=== PATIENT | male | born 1960 | race Caucasian/White ===

== ENCOUNTER 2016-09-12 19:35 | Emergency (ER) | payer OTHER ==
[2016-09-12 19:43] VITALS: TEMP 98.1
[2016-09-12] MEDS ORDERED: HYDROCODONE/APAP 5/325 TAB ONE (20:47)
[2016-09-12] MEDS ORDERED: IBUPROFEN 600 MG TAB PO ONE ×2 (20:48→20:58)
[2016-09-12] MEDS ORDERED: HYDROCODONE/APAP 5/325 TAB PO ONE (20:57)
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
[2016-09-13 03:58] VITALS: BP 132/72; PULSE 75; RESP 16; O2SAT 97
== END 2016-09-12 21:25 | disposition home or self-care (01) ==
DX: S16.1XXA Strain of muscle, fascia and tendon at neck level, initial encounter (principal); V66 Occupant of heavy transport vehicle injured in collision with other nonmotor vehicle; Y92.410 Unspecified street and highway as the place of occurrence of the external cause; Y99.8 Other external cause status; Y93.89 Activity, other specified

== ENCOUNTER 2016-09-20 02:39 | Emergency (ER) | payer OTHER ==
[2016-09-20] MEDS ORDERED: HYDROCODONE/APAP 5/325 TAB PO ONE (04:38)
[2016-09-20] MEDS ORDERED: KETOROLAC 30 MG/1 ML SDV IM ONE (04:38)
[2016-09-20 05:40] VITALS: RESP 18
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
[2016-09-20] MEDS ORDERED: LORazepam 1 MG TAB PO ONE (05:56)
[2016-09-20] MEDS ORDERED: HYDROCOD/APAP 5/325 PREPACK#6 BTL TAKEHOME ONE (06:50)
[2016-09-20 06:53] VITALS: BP 137/80; PULSE 73; TEMP 97.5; O2SAT 94
== END 2016-09-20 07:03 | disposition home or self-care (01) ==
DX: S16.1XXD Strain of muscle, fascia and tendon at neck level, subsequent encounter (principal); R20.2 Paresthesia of skin; V89.2XXD Person injured in unspecified motor-vehicle accident, traffic, subsequent encounter
CPT/HCPCS: J1885

== ENCOUNTER 2016-10-17 19:19 | Emergency (ER) | payer OTHER ==
--- NOTE | 2016-10-17 19:37 | EDPHY ---
H & P Stated Complaint: FELL ON FRIDAY NOW WITH SEVERE SWELLING TO R ELBOW AREA HPI/ROS: HPI CHIEF COMPLAINT: Right elbow pain status post fall Friday. HISTORY OF PRESENT ILLNESS: This patient very pleasant 56-year-old male nondiabetic, no significant medical history does not take any daily medications presents emergency room with right elbow pain. States that he tripped and fell backwards striking his right elbow on the rock ground. Patient since then has had some mild pain however it has progressively gotten worse. He now has erythema and tenderness over the olecranon bursa consistent with acute bursitis. Infected bursitis 1st traumatic bursitis. He does have full range of motion of the elbow. No fever. 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 Family History: Noncontributory ROS REVIEW OF SYSTEMS: A comprehensive 10 point review of systems is otherwise negative aside from elements mentioned in the history of present illness. Exam Constitutional triage nursing summary reviewed, vital signs reviewed, awake/ alert. Eyes normal conjunctivae and sclera, EOMI, PERRLA. HENT normal inspection, atraumatic, moist mucus membranes, no epistaxis, neck supple/ no meningismus, no raccoon eyes. Respiratory clear to auscultation bilaterally, normal breath sounds, no respiratory distress, no wheezing. Cardiovascular rate normal, regular rhythm, no murmur, no edema, distal pulses normal. Gastrointestinal soft, non-tender, no rebound, no guarding, normal bowel sounds, no distension, no pulsatile mass. Genitourinary no CVA tenderness. Musculoskeletal right arm: Neurovascular intact good radial pulse good cap refill, full range of motion of the elbow. However noted over the olecranon region there is olecranon bursitis the bursa is inflamed, red, warm, fluctuance. no midline vertebral tenderness, full range of motion, no calf swelling, no tenderness of extremities, no meningismus, good pulses, neurovascularly intact. Skin pink, warm, & dry, no rash, skin atraumatic. Neurologic awake, alert and oriented x 3, AAOx3, moves all 4 extremities equally, motor intact, sensory intact, CN II-XII intact, normal cerebellar, normal vision, normal speech. Psychiatric normal mood/affect. Heme/Lymph/Immune no lymphadenopathy. Differential Diagnosis: Includes but is not limited to in a particular order traumatic bursitis, infected bursitis, elbow fracture olecranon fracture. Medical Decision Making: Plan for this patient x-ray right elbow. An I and D bursa. Drain fluid. Sent for Gram stain culture. Start on Keflex and Bactrim. Close orthopedic follow-up. Re-evaluation: 2050: Patient's x-ray been reviewed of the right elbow. No fracture identified. No indication of occult fracture. Id has been performed. Studies have been sent. Patient been placed on Keflex Bactrim. Pain medicine. Close orthopedic follow-up return emergency room if there is worsening redness, swelling, pain patient understands. Source: Patient - Personal History Current Tetanus/Diphtheria Vaccine: Yes Current Tetanus Diphtheria and Acellular Pertussis (TDAP): Yes Tetanus Vaccine Date: 2013 - Medical/Surgical History Hx Asthma: No Hx Chronic Respiratory Disease: No Hx Diabetes: No Hx Cardiac Disease: No Hx Renal Disease: No Hx Cirrhosis: No Hx Alcoholism: No Hx HIV/AIDS: No Hx Splenectomy or Spleen Trauma: No Other PMH: R shoulder surg, R knee surg, neck surg, appendectomy - Social History Smoking Status: Never smoked Constitutional: Initial Vital Signs Temperature (C) 37.0 C 10/17/16 19:25 Heart Rate 110 H 10/17/16 19:25 Respiratory Rate 20 10/17/16 19:25 Blood Pressure 125/85 H 10/17/16 19:25 O2 Sat (%) 95 10/17/16 19:25 O2 Delivery Mode Room Air Allergies/Adverse Reactions: No Known Allergies Allergy (Unverified 10/17/16 19:27) Home Medications: Medication Instructions Recorded Ibuprofen 09/20/16 Cephalexin [Keflex] 500 mg PO Q6H #28 cap 10/17/16 Hydrocodone/APAP 5/325 [[place] 1 - 2 tab PO Q4H PRN #20 tab 10/17/16 5/325] Ibuprofen [Motrin (*)] 800 mg PO Q6-8PRN #10 tab 10/17/16 Sulfamethox/Tmp 800/160 mg 1 tab PO BID@1000,2200 #14 tab 10/17/16 [Bactrim Ds] Medical Decision Making - Data Points Laboratory Results: 10/17/16 20:20 Synovial Source Pending Synovial Color Pending Synovial Appearance Pending Synovial WBC Pending Synovial RBC Pending Synovial Glucose Pending Medications Given: Discontinued Medications Hydrocodone Bitart/Acetaminophen ([place] 10/325) 1 tab PO EDNOW ONE Stop: 10/17/16 19:43 Last Admin: 10/17/16 19:51 Dose: 1 tab Cephalexin HCl (Keflex) 500 mg PO EDNOW ONE PRN Reason: Protocol Stop: 10/17/16 19:43 Last Admin: 10/17/16 19:51 Dose: 500 mg Tetracaine/Epinephrine/Lidocaine (Let Gel Topical) 1 ea TP EDNOW ONE Stop: 10/17/16 19:52 Last Admin: 10/17/16 19:58 Dose: 1 ea Trimethoprim/Sulfamethoxazole (Bactrim Ds) 1 ea PO EDNOW ONE PRN Reason: Protocol Stop: 10/17/16 19:43 Last Admin: 10/17/16 19:51 Dose: 1 ea Departure - Departure Disposition: Home, Routine, Self-Care Clinical Impression: Traumatic bursitis Condition: Good Instructions: Cephalexin (By mouth), Hydrocodone/Acetaminophen (By mouth), Elbow Bursitis (ED) Additional Instructions: 1.Return emergency room if you have any worsening symptoms questions or concerns includes worsening redness, swelling, fever pain. 2. You need to follow up with Orthopedics closely. Return if any worsening symptoms. Take home medication instructions: [place] 1-2 tabs by mouth every 6 hours as needed for pain. Keflex 1 tablet four times per day until pills are finished. Referrals: NONE *PRIMARY CARE P,. [Primary Care Provider] - As per Instructions Prescriptions: Cephalexin [Keflex] 500 mg PO Q6H #28 cap Hydrocodone/APAP 5/325 [[place] 5/325] 1 - 2 tab PO Q4H PRN #20 tab PRN Reason: Pain, Moderate Ibuprofen [Motrin (*)] 800 mg PO Q6-8PRN #10 tab Sulfamethox/Tmp 800/160 mg [Bactrim Ds] 1 tab PO BID@1000,2200 #14 tab
[2016-10-17] MEDS ORDERED: CEPHALEXIN 500 MG CAP PO ONE (19:42)
[2016-10-17] MEDS ORDERED: HYDROCOD/APAP 5/325 PREPACK#6 BTL TAKEHOME ONE (19:42)
[2016-10-17] MEDS ORDERED: HYDROCODONE/APAP 10/325 TAB PO ONE (19:42)
[2016-10-17] MEDS ORDERED: SULFAMETHOX/TMP 800/160 MG 1 TAB PO ONE (19:42)
[2016-10-17] MEDS ORDERED: CEPHALEXIN 500MG PREPACK#4 BTL TAKEHOME ONE (19:42)
[2016-10-17] MEDS ORDERED: LET GEL TOPICAL 1 EA SYR TP ONE (19:51)
--- NOTE | 2016-10-17 20:27 | EDPHY ---
ED Progress Note Narrative: Procedure: Right Olecranon bursitis aspiration. Diagnosis: Right olecranon bursitis with effusion Verbal consent was obtained from the patient. The right elbow was anesthetized in the usual fashion with LET topical gel. The elbow was prepped with ChloraPrep x 3. The area was draped. The lateral epicondyle, radial head and olecranon process were identified on the right elbow. A 22 gauge needle was inserted into the most fluctuant area; clear serosanguineous fluid of 5 mL was aspirated; with a small amount of blood-tinged synovial fluid at the end of aspiration. The synovial fluid was sent for analysis. 2 x 2 gauze and then Coban was applied. Patient tolerated procedure well. The procedure was performed by myself.
[2016-10-17 21:11] LABS: WBC, SYNOVIAL FLUID 4370 /mm3 (0-150)
[2016-10-17 21:13] VITALS: BP 123/85; PULSE 89; RESP 16; TEMP 99.1; O2SAT 93
[2016-10-17 21:23] LABS: GLUCOSE, SYNOVIAL FLUID 99 mg/dL (55-113)
== END 2016-10-17 21:14 | disposition home or self-care (01) ==
PROC: 0M933ZZ Drainage of Right Elbow Bursa and Ligament, Percutaneous Approach (ICD-10-PCS; principal; 2016-10-17)
DX: M70.21 Olecranon bursitis, right elbow (principal); W01.198A Fall on same level from slipping, tripping and stumbling with subsequent striking against other object, initial encounter

== ENCOUNTER 2016-10-20 16:59 | Emergency (ER) | payer OTHER ==
--- NOTE | 2016-10-20 17:33 | EDPHY ---
H & P Time Seen by Provider: 10/20/16 17:22 HPI/ROS: Chief complaint. right elbow pain HPI. Patient is a 56-year-old male seen 3 days ago for fluid accumulation in the bursa. He had tripped and fallen on a rock striking his right elbow. He had fluid accumulation. X-ray was normal. The fluid was sent for culture and did not grow any bacteria. He is taking cephalexin and Bactrim. The fluid has slowly reaccumulate it and he was instructed to return for reaccumulation and possible we aspiration ROS Constitutional. no fever/chills, no weakness Eyes. no problems with vision ENT. no sore throat, no nasal drainage Cardiovascular. no chest pain Respiratory. no shortness of breath, no cough Abdominal. no abdominal pain, no nausea/vomiting, no diarrhea . no problems urinating MS. Right elbow pain and swelling Skin. no rash Lymph. no swollen glands Neuro. no headache, no dizziness, no difficulty walking or with speech Past Medical/Surgical History: Healthy Social History: , nonsmoker, no alcohol Smoking Status: Never smoked Physical Exam: General Appearance: Pleasant well-developed male mild distress vital signs are stable Eyes: Pupils equal and round no pallor or injection. ENT, Mouth: Mucous membranes are moist. Respiratory: There are no retractions, lungs are clear to auscultation. Cardiovascular: Regular rate and rhythm. Gastrointestinal: Abdomen is soft and nontender, no masses, bowel sounds normal. Neurological: Awake and alert, sensory and motor exams grossly normal. Skin: Warm and dry, no rashes. Musculoskeletal: Neck is supple nontender. Extremities fluid accumulation over the right olecranon bursa. No erythema or warmth or evidence for infection Psychiatric: Patient is oriented X 3, there is no agitation. Constitutional: Initial Vital Signs Temperature (C) 36.7 C 10/20/16 17:02 Heart Rate 85 10/20/16 17:02 Respiratory Rate 16 10/20/16 17:02 Blood Pressure 137/82 H 10/20/16 17:02 O2 Sat (%) 96 10/20/16 17:02 O2 Delivery Mode Room Air Allergies/Adverse Reactions: No Known Allergies Allergy (Verified 10/20/16 17:01) Home Medications: Medication Instructions Recorded Ibuprofen 09/20/16 Cephalexin [Keflex] 500 mg PO Q6H #28 cap 10/17/16 Hydrocodone/APAP 5/325 [[place] 1 - 2 tab PO Q4H PRN #20 tab 10/17/16 5/325] Ibuprofen [Motrin (*)] 800 mg PO Q6-8PRN #10 tab 10/17/16 Sulfamethox/Tmp 800/160 mg 1 tab PO BID@1000,2200 #14 tab 10/17/16 [Bactrim Ds] Medical Decision Making Procedures: After sterile preparation 1% lidocaine with epinephrine is infiltrated into the bursa. It is then aspirated with a 22 gauge needle yielding about 7 cc of serosanguineous fluid. Antibiotic ointment is then applied bandages applied an Lalito bandage applied over the top of this to try to prevent reaccumulation. Procedures performed by me. Patient tolerated the procedure well. The fluid is not sent for culture sensitivity as this was done several days ago and showed no growth and there is no evidence for infection currently ED Course/Re-evaluation: Patient and I discussed treatment plan including criteria for return importance of follow-up and further evaluation. He expresses understanding and agreement Differential Diagnosis: Olecranon bursitis posttraumatic. Likely this is inflammatory rather than infectious. No clinical findings for infection today. Departure - Departure Disposition: Home, Routine, Self-Care Clinical Impression: Olecranon bursitis of right elbow Condition: Good Instructions: Elbow Bursitis (ED) Additional Instructions: Finish your antibiotics. Ibuprofen 600 mg every 6 hours for discomfort and inflammation. Wear the Lalito bandage for about 24 hours to try to prevent reaccumulation. Return for worsening pain, redness, fever. Follow up with orthopedist as previously recommended Referrals: NONE *PRIMARY CARE P,. [Primary Care Provider] - As per Instructions Noé Willingham MD [Medical Doctor] - 3-4 days, if not improved
[2016-10-20 18:51] VITALS: BP 128/75; PULSE 86; RESP 20; TEMP 98.2; O2SAT 93
== END 2016-10-20 18:50 | disposition home or self-care (01) ==
PROC: 0M933ZZ Drainage of Right Elbow Bursa and Ligament, Percutaneous Approach (ICD-10-PCS; principal; 2016-10-20)
DX: M70.21 Olecranon bursitis, right elbow (principal)